=== PATIENT | female | born 1940 | race Caucasian/White ===

== ENCOUNTER 2016-07-21 05:37 | Outpatient (CLI) | payer MEDICARE, OTHER, MEDICAID ==
[~2016-07-21] VITALS: Ht 157.5 cm; Wt 73.9 kg
[2016-07-21] MEDS ORDERED: ASCO-129 PO (10:05)
[2016-07-21] MEDS ORDERED: BIOT10002 PO (10:05)
[2016-07-21] MEDS ORDERED: LEVO100T7 PO (10:05)
[2016-07-21] MEDS ORDERED: MESA800T PO (10:05)
[2016-07-21] MEDS ORDERED: OMEP40CA36 PO (10:05)
[2016-07-21] MEDS ORDERED: GABA600T2 PO (10:05)
[2016-07-21] MEDS ORDERED: LUTE20CA13 PO (10:05)
[2016-07-21] MEDS ORDERED: RT-ALBUINH IH (10:05)
[2016-07-21] MEDS ORDERED: FLUT1AER IH (10:05)
[2016-07-21] MEDS ORDERED: CHOL500050 PO (10:05)
[2016-07-21] MEDS ORDERED: AZIT250T PO (10:05)
[2016-07-21] MEDS ORDERED: MELO15TA39 PO (10:05)
== END 2016-07-21 10:52 ==
LOC: PREOP 05:37
PROVIDERS: ATTEND Otolaryngology Otolaryngology/Facial Plastic Surgery
DX: Z01.818 Encounter for other preprocedural examination (principal); J32.9 Chronic sinusitis, unspecified

== ENCOUNTER 2016-07-23 08:51 | Day surgery (SDC) | payer MEDICARE, OTHER, MEDICAID ==
[~2016-07-23] VITALS: Ht 157.5 cm; Wt 73.9 kg
[~2016-07-23 08:51] MED LIST: ASCO-129 PO; AZIT250T PO; BIOT10002 PO; CHOL500050 PO; FLUT1AER IH; GABA600T2 PO; LEVO100T7 PO; LUTE20CA13 PO; MELO15TA39 PO; MESA800T PO; OMEP40CA36 PO; RT-ALBUINH IH
[2016-07-23 09:15] VITALS: BP 127/60
[2016-07-23] MEDS ORDERED: LACTATED RINGERS 1,000 ML IV PRN (09:20)
[2016-07-23] MEDS ORDERED: AMPICILLIN/SULBACTAM 1.5 GM/NS 50 ML IVPB IV ONE ×2 (09:30)
[2016-07-23] MEDS ORDERED: RT-ALBUTEROL SULF 2.5 MG/3 ML PRE-MIX VIAL INH ONE (09:30)
[2016-07-23] MEDS ORDERED: CATHETER FLUSH 10 ML SYR IV PRN (09:30)
[2016-07-23] MEDS ORDERED: FAMOTIDINE 20MG/2ML IV (PEPCID) IV ONE (09:30)
--- NOTE | 2016-07-23 09:30 | Progress Note-Pre Operative ---
Pre-Operative Progress Note H&P Reviewed The H&P was reviewed, patient examined and no changes noted. Date H&P Reviewed: Jul 23, 2016 Time H&P Reviewed: 09:30 Pre-Operative Diagnosis: Bilat Chronic ESTUARDO ARIE CARRINGTON MD Jul 23, 2016 9:29 am
[2016-07-23] MEDS ORDERED: PHENYLEPHRINE 0.5% NASAL SPR (NEO-SYNEPHRINE) REG ONE (09:37)
[2016-07-23] MEDS ORDERED: BSS 15 ML ONE (09:37)
[2016-07-23] MEDS ORDERED: COCAINE HCL 4% 2 ML SYR ONE (09:37)
[2016-07-23] MEDS ORDERED: LIDOCAINE/EPI 1%-1:100,000 (XYLOCAINE) 20ML ONE (09:37)
[2016-07-23] MEDS ORDERED: proPOfol 200 MG/20 ML (DIPRIVAN) VIAL IV ONE (09:40)
[2016-07-23] MEDS ORDERED: MIDAZOLAM 2 MG/2 ML (VERSED) VIAL ONE (09:40)
[2016-07-23] MEDS ORDERED: fentaNYL INJECTION 100 MCG/2 ML AMP ONE ×2 (09:40→10:40)
[2016-07-23] MEDS ORDERED: SUCCINYLCHOLINE INJ 100 MG/5 ML SYR ONE (09:40)
[2016-07-23] MEDS ORDERED: ROCURONIUM 50 MG/5 ML (ZEMURON) VIAL IV ONE (09:40)
[2016-07-23] MEDS ORDERED: LIDOCAINE PF 2% 10 ML (XYLOCAINE) AMP ONE (09:40)
[2016-07-23] MEDS ORDERED: SEVOFLURANE (ULTANE) 15 ML INHAL SOLN ONE ×3 (09:40→10:48)
[2016-07-23] MEDS ORDERED: ONDANSETRON 4 MG/2 ML (SDV) Z0FRAN ONE (09:40)
[2016-07-23] MEDS ORDERED: LACTATED RINGERS 1,000 ML IV ONE (09:40)
--- NOTE | 2016-07-23 10:53 | Progress Note-Post Operative ---
Post-Operative Progess Note Surgeon (s)/Director Of Integrated Marketing (s) Surgeon ARIE CARRINGTON MD Director Of Integrated Marketing: n/a Pre-Operative Diagnosis Bilat Chronic ESTUARDO Post-Operative Diagnosis same Post-Op Procedure Note Date of Procedure: Jul 23, 2016 Name of Procedure Performed: Bilat ESs, Bilat Partial Reduction of the Inf Turbs Description of the Procedure: n/.a Findings of the Procedure /a Anesthesia Type get Estimated blood loss (mL): 100cc Packing: DNP-bilat Specimen(s) collected/removed bilat chornic sinus disease, aerobic anaerobic and fungal culture-left maxillary sinus ARIE CARRINGTON MD Jul 23, 2016 10:53 am
[2016-07-23] MEDS ORDERED: NEOSTIGMINE (BLOXIVERZ ) 1 MG/1ML 10 ML VIAL ONE (10:59)
[2016-07-23] MEDS ORDERED: GLYCOPYRROLATE 0.2 MG/ML (ROBINUL) 2 ML VIAL ONE (10:59)
[2016-07-23] MEDS ORDERED: MEPERIDINE (DEMEROL) INJ 50 MG/ML IVP PRN (11:00)
[2016-07-23] MEDS ORDERED: morphine INJ 10 MG/ML 1ML (SYR OR VIAL) IVP PRN (11:00)
[2016-07-23] MEDS ORDERED: ONDANSETRON 4 MG/2 ML (SDV) Z0FRAN IVP PRN (11:00)
[2016-07-23 11:55] VITALS: BP 153/72
[2016-07-23] MEDS ORDERED: HYDR-3812 PO (12:22)
[2016-07-23] MEDS ORDERED: AMOX-355 PO (12:22)
[2016-07-23 12:25] VITALS: BP 148/61
[2016-07-23] MEDS ORDERED: ACETAMINOPHEN 500 MG TAB (TYLENOL) ONE (12:42)
[2016-07-23 12:55] VITALS: BP 148/62
[2016-07-23] MEDS ORDERED: ACETAMINOPHEN 500 MG TAB (TYLENOL) PO ONE (14:00)
== END 2016-07-23 13:44 | disposition home or self-care (01) ==
LOC: SDC 08:51
PROVIDERS: ATTEND Otolaryngology Otolaryngology/Facial Plastic Surgery
DX: J32.0 Chronic maxillary sinusitis (principal); J32.2 Chronic ethmoidal sinusitis; J34.3 Hypertrophy of nasal turbinates
CPT/HCPCS: 82962; 87070; 87075; 87081; 87101; 87205; 88305; 94664